=== PATIENT | female | born 1980 | race Caucasian/White ===

== ENCOUNTER 2017-10-14 14:06 | Emergency (ER) | payer MEDICAID, OTHER ==
[~2017-10-14] VITALS: Ht 170.2 cm; Wt 124.0 kg
[2017-10-14 14:10] VITALS: BP 174/89; PULSE 91; RESP 16; TEMP 98.4; O2SAT 97
[2017-10-14] MEDS ORDERED: AUGM875T3 PO (15:04)
--- NOTE | 2017-10-14 15:05 | PD ---
HPI Chief Complaint: Oral / Dental Pain or Problem Time Seen by Provider: 14:58 Travel History International Travel<30 days: No Contact w/Intl Traveler<30days: No Traveled to known affect area: No History of Present Illness HPI 37-year-old female with right lower dental abscess 1 day. Denies fever chills. History of prior dental infections. No difficulty swallowing. Symptom severity is mild to moderate. No aggravating or alleviating factors. PFSH Past Medical History Cardiovascular Problems: Yes (htn interm. not on meds) ?: Not LMP: 2 weeks Social History Tobacco Use: No Allergies-Medications (Allergen,Severity, Reaction): Coded Allergies: promethazine (Verified Allergy, Intermediate, 10/14/17) Reported Meds & Prescriptions Reported Meds & Active Scripts Active Augmentin (Amoxicillin-Clavulanate) 875-125 Mg Tab 1 Tab PO BID Review of Systems Except as stated in HPI: all other systems reviewed are Neg General / Constitutional: No: Fever Eyes: No: Visual changes HENT: No: Headaches Cardiovascular: No: Chest Pain or Discomfort Respiratory: No: Shortness of Breath Gastrointestinal: No: Abdominal Pain Physical Exam Narrative GENERAL: Alert and well-appearing 37-year-old female. SKIN: Warm and dry. HEAD: Normocephalic. EYES: No injection or drainage. MOUTH: Widespread dental decay. Gum swelling and erythema around right lower molar. No swelling of the floor the mouth. Uvula is midline. Airways patent. Normal phonation. NECK: Supple, trachea midline. No JVD or lymphadenopathy. Data Data Last Documented VS Vital Signs Date Time Temp Pulse Resp B/P (MAP) Pulse Ox O2 Delivery O2 Flow Rate FiO2 10/14/17 14:10 98.4 91 16 174/89 (117) 97 MDM Medical Decision Making Medical Screen Exam Complete: Yes Emergency Medical Condition: Yes Differential Diagnosis Dental abscess, dental caries, periodontal disease Narrative Course 37-year-old female here with a dental abscess she is nontoxic appearing. Be treated with Augmentin and instructed to follow-up with her dentist. Diagnosis Primary Impression: Dental abscess Referrals: Dentist Additional Instructions: Antibiotics as directed. Warm salt water swishes as directed. Follow up with your dentist Scripts Amoxicillin-Clavulanate (Augmentin) 875-125 Mg Tab 1 TAB PO BID for Infection, #20 TAB 0 Refills Prov: Tory Miranda 10/14/17 Disposition: 01 DISCHARGE HOME Condition: Stable Tory Miranda Oct 14, 2017 15:05
[2017-10-14] MEDS ORDERED: ARMO240T PO (15:09)
== END 2017-10-14 15:35 | disposition home or self-care (01) ==
LOC: PHEFT 14:06
DX: K04.7 Periapical abscess without sinus (principal); I10 Essential (primary) hypertension
CPT/HCPCS: 99283